=== PATIENT | male | born 1980 | race Caucasian/White ===

== ENCOUNTER 2020-05-18 11:26 | Emergency (ER) | payer SELFPAY ==
[~2020-05-18] VITALS: Ht 185.4 cm; Wt 102.0 kg
[2020-05-18 11:27] VITALS: BP 154/85
--- NOTE | 2020-05-18 12:36 | PHYS DOC ---
General Adult EDM: Chief Complaint: MECHANICAL FALL HPI: HPI: Patient is a 39-year-old male who presents with headache, right wrist pain, low back pain after fall on Sunday. Patient states since the fall he has been nauseated and losing his balance. Patient states "I have been yelling at my and acting very angry which is not like me". Patient does report losing consciousness when he fell. Patient states that he slipped on ice and hit his head on the trunk of the car. Patient denies being on blood thinners. Denies medical history. (CLEMENTE GALAVIZ APRN) Review of Systems: Review of Systems: Constitutional: Denies fever or chills Eyes: Denies change in visual acuity HENT: Denies nasal congestion or sore throat Respiratory: Denies cough or shortness of breath Cardiovascular: Denies chest pain or edema GI: Denies abdominal pain, reports nausea and vomiting : Denies dysuria Musculoskeletal: Reports lower back pain back pain, right wrist pain Integument: Denies rash Neurologic: Reports headache, denies focal weakness or sensory changes Endocrine: Denies polyuria or polydipsia Lymphatic: Denies swollen glands Psychiatric: Denies depression or anxiety (CLEMENTE GALAVIZ APRN) Physical Exam: PE: Constitutional: Well developed, well nourished, no acute distress, non-toxic appearance. [] HENT: Normocephalic, atraumatic, bilateral external ears normal, oropharynx moist, no oral exudates, nose normal. [] Eyes: PERRLA, EOMI, conjunctiva normal, no discharge. [] Neck: Normal range of motion, no tenderness, supple, no stridor. [] Cardiovascular:Heart rate regular rhythm, no murmur [] Lungs & Thorax: Bilateral breath sounds clear to auscultation [] Abdomen: Bowel sounds normal, soft, no tenderness, no masses, no pulsatile masses. [] Skin: Warm, dry, no erythema, no rash. [] Back: No tenderness, no CVA tenderness. [] Extremities: No tenderness, no cyanosis, no clubbing, ROM intact, no edema. [] Neurologic: Alert and oriented X 3, normal motor function, normal sensory function, no focal deficits noted. [] Psychologic: Affect normal, judgement normal, mood normal. [] (CLEMENTE GALAVIZ TRANSPORTATION ANALYST) EKG: EKG: Sinus Rhythm, HR 72 BPM[] (CLEMENTE GALAVIZ APRN) Radiology/Procedures: Radiology/Procedures: []CT LUMBAR SPINE WO History: Reason: FALL, HEADACHE / Spl. Instructions: / History: Comparison: CT lumbar spine 02/20/2016. Technique: Noncontrast CT of the lumbar spine. Findings: There are 5 nonrib-bearing lumbar vertebral bodies. No fracture or dislocation. Normal alignment. Advanced degenerative disc disease at L5-S1 with near-complete disc height loss, sclerotic degenerative endplate changes and disc bulge with bilateral neural foraminal stenosis. Mild disc height loss and disc bulge at L4- L5. Findings are progressive from 2016. Visualized portions of the abdomen are unremarkable. Sacroiliac joints are within normal limits. IMPRESSION: 1. No acute osseous abnormality of the lumbar spine. 2. Progressive degenerative disc disease at L5-S1 with potential for symptomatic neural foraminal stenoses. ---- Exposure: One or more of the following individualized dose reduction techniques were utilized for this examination: 1. Automated exposure control 2. Adjustment of the mA and/or kV according to patient size 3. Use of iterative reconstruction technique. Electronically signed by: Brian Sen MD (05/18/2020 1:09 PM) [facility] XR RT WRIST 3VIEWS History: Reason: FALL / Spl. Instructions: / History: Comparison: None. Technique: 3 views of the right wrist. Findings: Osseous mineralization is normal. No fracture or dislocation. No significant degenerative changes. No aggressive osseous erosive process. No focal soft tissue swelling. Impression: 1. No acute osseous abnormality of the right wrist. Electronically signed by: Brian Sen MD (05/18/2020 1:03 PM) [facility] CT HEAD AND C-SPINE WO History: Reason: FALL, HEADACHE / Spl. Instructions: / History: Comparison: None. Technique: Noncontrast CT of the head and cervical spine. Findings: CT HEAD: There is no evidence for intracranial mass or hemorrhage. There is no hydrocephalus or midline shift. No abnormal extra-axial fluid collections are present. Spear/white matter differentiation is preserved. The visualized paranasal sinuses and mastoid air cells are clear. Rightward deviation of the nasal septum. The skull and scalp are within normal limits. CT CERVICAL SPINE: There is no evidence for fracture in the cervical spine. Alignment is normal. Mild degenerative changes of the cervical spine with uncovertebral hypertrophy at C3-C4, disc space narrowing at C5-C6 and circumferential disc osteophyte at C6-C7. No destructive osseous lesions are seen. Limited evaluation of the soft tissues of the neck and of the upper chest is unremarkable. Impression: 1. No acute intracranial findings. 2. Mild degenerative changes without acute osseous abnormality cervical spine. Exposure: One or more of the following individualized dose reduction techniques were utilized for this examination: 1. Automated exposure control 2. Adjustment of the mA and/or kV according to patient size 3. Use of iterative reconstruction technique. Electronically signed by: Brian Sen MD (05/18/2020 1:01 PM) [facility] XR CHEST 1V History: Reason: FALL / Spl. Instructions: / History: Comparison: None. Technique: Portable AP chest radiograph. Findings: The lungs are adequately and symmetrically inflated. No airspace consolidation, pleural effusion or pneumothorax. The cardiomediastinal silhouette and pulmonary vasculature are within normal limits. Soft tissues and osseous structures are unremarkable. Impression: 1. No acute cardiopulmonary process. Electronically signed by: Brian Sen MD (05/18/2020 1:02 PM) [facility] (CLEMENTE GALAVIZ APRN) Heart Score: Risk Factors: Risk Factors: DM, Current or recent (<one month) smoker, HTN, HLP, family history of CAD, obesity. Risk Scores: Score 0 - 3: 2.5% MACE over next 6 weeks - Discharge Home Score 4 - 6: 20.3% MACE over next 6 weeks - Admit for Clinical Observation Score 7 - 10: 72.7% MACE over next 6 weeks - Early Invasive Strategies (CLEMENTE GALAVIZ APRN) Course & Med Decision Making: Course & Med Decision Making Pertinent Labs and Imaging studies reviewed. (See chart for details) []Patient is a 39-year-old male who presents with headache, right wrist pain, low back pain after fall on Sunday. Patient states since the fall he has been nauseated and losing his balance. Patient states "I have been yelling at my and acting very angry which is not like me". Patient does report losing consciousness when he fell. Patient states that he slipped on ice and hit his head on the trunk of the car. Patient denies being on blood thinners. Denies medical history. Patient is tearful and appears drowsy. is at bedside. has slurred speech and appears altered. states "if anything shows up in his urine, my cousin gave him a Zofran yesterday, but it looked different than usual". Denies having a PCP. 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 EKG ordered to rule out cardiac arrhythmias. CT head and cervical spine ordered to rule out fracture or bleeding. CT lumbar ordered due to low back pain. GCS of 15. CT head and cervical spine negative for any acute abnormalities. CT lumbar negative for acute abnormalities. Right wrist negative for fracture. Chest x- ray negative. EKG normal sinus rhythm. Labs unremarkable. Urine is negative for infection. UDS positive for benzos. Morphine given for pain. Zofran for nausea. Patient discharged home with . Patient is hemodynamically stable and able to ambulate on his own. Patient most likely has a concussion from the fall. You were seen in the emergency room today for back pain, headache, right wrist pain after a fall on Sunday. CT of your head and neck were negative for bleeding or fractures. All of your lab work came back negative for any abnormalities. Wrist x-ray was negative for fracture. You most likely have suffered a concussion after the fall. Your symptoms may last for 7 to 10 days. you can take Tylenol or ibuprofen at home for discomfort. You want to get plenty of rest, limit activities that require mental concentration. Lying in a dark room and avoiding stimuli such as TV and cell phone. Make sure to drink plenty of fluids so that you stay hydrated. Limit your exposure to bright lights loud sounds. You can use an ice pack to painful areas such as the back of your head for 20 minutes at a time. Also important you are getting enough sleep so that you can let your brain rest and heal. Please return to the emergency room with worsening symptoms or concerns. I have attached a primary care physician list for you to establish care with a doctor. asked if patient was getting pain medication to take at home. Explained to patient that he need to take ibuprofen and Tylenol at home for discomfort. Patient states "that pain medication made me feel so much better I have not taken any narcotics since I got sober and started going to restorationist". Patient and both displaying drug-seeking and manipulative behavior. (CLEMENTE GALAVIZ APRN) Jimenez Disclaimer: Jimenez Disclaimer: This electronic medical record was generated, in whole or in part, using a voice recognition dictation system. (CLEMENTE GALAVIZ APRN) Departure Departure: Impression: Primary Impression: Concussion Qualified Codes: S06.0X1A - Concussion with loss of consciousness of 30 minutes or less, initial encounter Disposition: 01 DC HOME SELF CARE/HOMELESS Condition: STABLE Referrals: PCP,NO (PCP) Patient Instructions: Concussion and Brain Injury, [id number] Additional Instructions: You were seen in the emergency room today for back pain, headache, right wrist pain after a fall on Sunday. CT of your head and neck were negative for bleeding or fractures. All of your lab work came back negative for any abnormalities. Wrist x-ray was negative for fracture. You most likely have suf fered a concussion after the fall. Your symptoms may last for 7 to 10 days. you can take Tylenol or ibuprofen at home for discomfort. You want to get plenty of rest, limit activities that require mental concentration. Lying in a dark room and avoiding stimuli such as TV and cell phone. Make sure to drink plenty of fluids so that you stay hydrated. Limit your exposure to bright lights loud sounds. You can use an ice pack to painful areas such as the back of your head for 20 minutes at a time. Also important you are getting enough sleep so that you can let your brain rest and heal. Please return to the emergency room with worsening symptoms or concerns. I have attached a primary care physician list for you to establish care with a doctor. EMERGENCY DEPARTMENT GENERAL DISCHARGE INSTRUCTIONS Thank you for coming to [facility] (ED) today and trusting us with you care. We trust that you had a positivie experience in our Emergency Department. If you wish to speak to the department management, you may call the director at [phone]. YOUR FOLLOW UP INSTRUCTIONS ARE FOLLOWS: 1. Do you have a private Doctor? If you do not have a private doctor, please ask for a resource list of physicians or clinics that may be able to assist you with follow up care. 2. The Emergency Physician has interpreted your x-rays. The X-Ray specialist will also review them. If there is a change in the findings, you will be notified in 48 hours when at all possible. 3. A lab test or culture has been done, your results will be reviewed and you will be notified if you need a change in treatment. ADDITIONAL INSTRUCTIONS AND INFORMATION: 1. Your care today has been supervised by a physician who is specially trained in emergency care. Many problems require more than one evaluation for a complete diagnosis and treatment. We recommend that you schedule your follow up appointment as recommended to ensure complete treatment of you illness or injury. If you are unable to obtain follow up care and continue to have a problem, or if your condition worsens, we recommend that you return to the ED. 2. We are not able to safely determine your condition over the phone nor are we able to give sound medical advice over the phone. For these safety reasons, if you call for medical advice we will ask you to come to the ED for further evaluation. 3. If you have any questions regarding these discharge instructions please call the ED at [phone]. SAFETY INFORMATION: In the interest of safety, wellness, and injury prevention; we encourage you to wear your sealbelt, if you smoke; quite smoking, and we encourage family to use a protective helmet for bicycling and other sporting events that present an increased risk for head injury. IF YOUR SYMPTOMS WORSEN OR NEW SYMPTOMS DEVELOP, OR YOU HAVE CONCERNS ABOUT YOUR CONDITION; OR IF YOUR CONDITION WORSENS WHILE YOU ARE WAITING FOR YOUR FOLLOW UP APPOINTMENT; EITHER CONTACT YOUR PRIMARY CARE DOCTOR, THE PHYSICIAN WHOSE NAME AND NUMBER YOU WERE GIVEN, OR RETURN TO THE ED IMMEDIATELY. Attending Signature Attending Signature I have reviewed the PA/DIESEL ENGINE ASSEMBLER's note and plan of care. I was available for consultation as needed during the patient's visit in the emergency department. I agree with the clinical impression, plan, and disposition. (FLAKITA QUINN DO) CLEMENTE GALAVIZ APRN May 18, 2020 12:36 FLAKITA QUINN DO May 21, 2020 04:26
[2020-05-18] MEDS ORDERED: MORPHINE SULFATE 4 MG/ML DISP.SYRIN. IV ONE (13:00)
[2020-05-18] MEDS ORDERED: ONDANSETRON PF 4 MG/2 ML VIAL. IVP ONE (13:00)
[2020-05-18] MEDS ORDERED: ONDANSETRON PF 4 MG/2 ML VIAL. ONE (13:00)
--- NOTE | 2020-05-18 13:04 | RAD ---
CT HEAD AND C-SPINE WO History: Reason: FALL, HEADACHE / Spl. Instructions: / History: Comparison: None. Technique: Noncontrast CT of the head and cervical spine. Findings: CT HEAD: There is no evidence for intracranial mass or hemorrhage. There is no hydrocephalus or midline shift. No abnormal extra-axial fluid collections are present. Spear/white matter differentiation is preserved. The visualized paranasal sinuses and mastoid air cells are clear. Rightward deviation of the nasal se ptum. The skull and scalp are within normal limits. CT CERVICAL SPINE: There is no evidence for fracture in the cervical spine. Alignment is normal. Mild degenerative changes of the cervical spine with uncovertebral hypertrophy at C3-C4, disc space n arrowing at C5-C6 and circumferential disc osteophyte at C6-C7. No destructive osseous lesions are seen. Limited evaluation of the soft tissues of the neck and of the upper chest is unremarkable. Impression: 1. No acute intracranial findings. 2. Mild degenerative changes without acute osseous abnormality cervical spine. Exposure: One or more of the following individualized dose reduction techniques were utilized for thi s examination: 1. Automated exposure control 2. Adjustment of the mA and/or kV according to patient size 3. Use of iterative reconstruction technique. Electronically signed by: Brian Sen MD (05/18/2020 1:01 PM) [facility]
--- NOTE | 2020-05-18 13:05 | RAD ---
XR CHEST 1V History: Reason: FALL / Spl. Instructions: / History: Comparison: None. Technique: Portable AP chest radiograph. Findings: The lungs are adequately and symmetrically inflated. No airspace consolidation, pleural effusion or p neumothorax. The cardiomediastinal silhouette and pulmonary vasculature are within normal limits. Sof t tissues and osseous structures are unremarkable. Impression: 1. No acute cardiopulmonary process. Electronically signed by: Brian Sen MD (05/18/2020 1:02 PM) [facility]
--- NOTE | 2020-05-18 13:06 | RAD ---
XR RT WRIST 3VIEWS History: Reason: FALL / Spl. Instructions: / History: Comparison: None. Technique: 3 views of the right wrist. Findings: Osseous mineralization is normal. No fracture or dislocation. No significant degenerative changes. No aggressive osseous erosive process. No focal soft tissue swelling. Impression: 1. No acute osseous abnormality of the right wrist. Electronically signed by: Brian Sen MD (05/18/2020 1:03 PM) [facility]
--- NOTE | 2020-05-18 13:11 | RAD ---
CT LUMBAR SPINE WO History: Reason: FALL, HEADACHE / Spl. Instructions: / History: Comparison: CT lumbar spine 02/20/2016. Technique: Noncontrast CT of the lumbar spine. Findings: There are 5 nonrib-bearing lumbar vertebral bodies. No fracture or dislocation. Normal alignment. Adv anced degenerative disc disease at L5-S1 with near-complete disc height loss, sclerotic degenerative endplate changes and disc bulge with bilateral neural foraminal stenosis. Mild disc height loss and d isc bulge at L4-L5. Findings are progressive from 2016. Visualized portions of the abdomen are unremarkable. Sacroiliac joints are within normal limits. IMPRESSION: 1. No acute osseous abnormality of the lumbar spine. 2. Progressive degenerative disc disease at L5-S1 with potential for symptomatic neural foraminal st enoses. ---- Exposure: One or more of the following individualized dose reduction techniques were utilized for thi s examination: 1. Automated exposure control 2. Adjustment of the mA and/or kV according to patient size 3. Use of iterative reconstruction technique. Electronically signed by: Brian Sen MD (05/18/2020 1:09 PM) [facility]
[2020-05-18] MEDS ORDERED: IV NORMAL SALINE 1,000ML 1,000 ML IV ONE (13:15)
[2020-05-18 13:20] LABS: BASO # 0.1 x10^3/uL (0.0-0.2); BASO % 1 % (0-3); EOS # 0.4 x10^3/uL (0.0-0.7); EOS % 6 % (0-3); HEMOGLOBIN 15.4 g/dL (13.0-17.5); LYMPH # 2.6 x10^3/uL (1.0-4.8); LYMPH % 38 % (24-48); MEAN CORPUSCULAR HEMOGLOBIN 30 pg (25-35); MEAN CORPUSCULAR HGB CONC 34 g/dL (31-37); MEAN CORPUSCULAR VOLUME 90 fL (79-100); MONO # 0.6 x10^3/uL (0.0-1.1); MONO % 9 % (0-9); NEUT # 3.1 x10^3uL (1.8-7.7); NEUT % 46 % (31-73); PLATELET COUNT 258 x10^3/uL (140-400); RED BLOOD COUNT 5.13 x10^6/uL (4.30-5.70); RED CELL DISTRIBUTION WIDTH 13.5 % (11.5-14.5); WHITE BLOOD COUNT 6.8 x10^3/uL (4.0-11.0)
[2020-05-18 13:24] LABS: CALCIUM 9.2 mg/dL (8.5-10.1); CREATININE 0.7 mg/dL (0.7-1.3); GFR 125.5; POTASSIUM 4.6 mmol/L (3.5-5.1)
[2020-05-18 13:31] LABS: ALBUMIN 3.5 g/dL (3.4-5.0); ALBUMIN/GLOBULIN RATIO 1.1 (1.0-1.7); TOTAL BILIRUBIN 0.3 mg/dL (0.2-1.0); TOTAL PROTEIN 6.8 g/dL (6.4-8.2)
--- NOTE | 2020-05-18 13:41 | EKG ---
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
[2020-05-18 13:45] LABS: BARBITURATES NEG (NEG); BENZODIAZEPINES POS (NEG); CANNABINOIDS NEG (NEG); COCAINE NEG (NEG); METHADONE NEG (NEG); OPIATES NEG (NEG); PHENCYCLIDINE NEG (NEG)
[2020-05-18 13:46] LABS: AMPHETAMINE/METHAMPHETAMINE NEG (NEG)
[2020-05-18 13:57] LABS: BACTERIA,URINE 0 /HPF (0-FEW); BILIRUBIN,URINE NEG (NEG); CLARITY,URINE CLEAR; COLOR,URINE YELLOW; GLUCOSE,URINE NEG (NEG); NITRITE,URINE NEG (NEG); RBC,URINE RARE /HPF (0-2); SQUAMOUS EPITHELIAL CELL,UR OCC /LPF; WBC,URINE 0 /HPF (0-4)
== END 2020-05-18 14:41 | disposition home or self-care (01) ==
LOC: ER 11:26
DX: S06.0X9A Concussion with loss of consciousness of unspecified duration, initial encounter (principal); R11.2 Nausea with vomiting, unspecified; M25.531 Pain in right wrist; M54.5 Low back pain; W18.39XA Other fall on same level, initial encounter; Y93.89 Activity, other specified; Y92.89 Other specified places as the place of occurrence of the external cause; Y99.8 Other external cause status
CPT/HCPCS: 36415; 70450; 71045; 72125; 72131; 73110; 80053; 80307; 81001; 85025; 93005; 96361; 96374; 96375; 99285; J2270; J2405; J7030